=== PATIENT | male | born 1965 | race Caucasian/White ===

== ENCOUNTER → 2021-12-06 | Day surgery (SDC) | payer OTHER ==
[~2021-12-06] VITALS: Ht 182.9 cm; Wt 85.3 kg
[~2021-12-06] MED LIST: ACETAMINOPHEN500 M1 PO; COLACE100 MG PO; MOTRIN600 MG PO; NORVASC2.5 MG PO; OXY-IR 5MG5 MG PO
[2021-12-06 09:27] LABS: BUN/CREAT RATIO (CALC) 20.5 RATIO; CREATININE 0.88 mg/dL (0.67-1.17); POTASSIUM 4.2 mmol/L (3.5-5.1)
== END | disposition home or self-care (01) ==
LOC: FAS 07:55
PROVIDERS: Anesthesiology
DX: K40.90 Unilateral inguinal hernia, without obstruction or gangrene, not specified as recurrent (principal); I10 Essential (primary) hypertension; Z98.52 Vasectomy status
CPT/HCPCS: 36415; 80048; 93005; J0690; J1644; J1885; J2250; J2405; J2550; J2704; J2710; J3010; J7120